=== PATIENT | male | born 1995 | race Hispanic/Latino ===

== ENCOUNTER 2021-12-11 21:16 | Emergency (ER) | payer OTHER ==
[~2021-12-11] VITALS: Ht 180.3 cm; Wt 74.4 kg
[2021-12-11 21:32] VITALS: BP 130/68
[2021-12-11] MEDS ORDERED: KETOROLAC 60 MG VIAL (30MG/ML) IM ONE ×2 (22:30→22:47)
[2021-12-11] MEDS ORDERED: DICL50TA9 PO (22:45)
== END 2021-12-11 23:05 | disposition home or self-care (01) ==
LOC: EDH 21:16
DX: S20.212A Contusion of left front wall of thorax, initial encounter (principal); J45.909 Unspecified asthma, uncomplicated; Z79.1 Long term (current) use of non-steroidal anti-inflammatories (NSAID); W18.39XA Other fall on same level, initial encounter; Y93.89 Activity, other specified; Y92.89 Other specified places as the place of occurrence of the external cause; Y99.8 Other external cause status
CPT/HCPCS: 99284; 71045; 71100; 96372; J1885